=== PATIENT | female | born 1985 | race Caucasian/White ===

== ENCOUNTER → 2017-04-12 | Outpatient (CLI) | payer BC, OTHER ==
[~2017-04-12] MED LIST: FERR325T51 PO; FRRS300 PO; PRENTAB26 PO
== END | disposition home or self-care (01) ==
LOC: C.PAPS 11:13
PROVIDERS: ATTEND Obstetrics & Gynecology
DX: Z01.419 Encounter for gynecological examination (general) (routine) without abnormal findings (principal)

== ENCOUNTER → 2017-07-09 | Outpatient (CLI) | payer BC ==
[2017-07-09 17:54] LABS: URINE APPEARANCE CLEAR (CLEAR); URINE BILIRUBIN NEG (NEG); URINE COLOR YELLOW; URINE EPITHELIAL CELL AUTO 20-30 /lpf (0-5); URINE NITRITE NEG (NEG); URINE PH 5.5 (4.5-7.5); UROBILINOGEN NEG (NEG)
[2017-07-09 17:56] LABS: MANUAL MICROSCOPIC REQUIRED? NO; REVIEW REQ? NO
== END | disposition home or self-care (01) ==
LOC: C.LABSPEC 17:27
PROVIDERS: ATTEND Obstetrics & Gynecology
DX: Z34.91 Encounter for supervision of normal pregnancy, unspecified, first trimester (principal)

== ENCOUNTER → 2017-07-13 | Outpatient (CLI) | payer BC ==
[2017-07-15 15:16] LABS: CHLAMYDIA TRACH RNA*** NOT DETECTED (NOT DETECTED); GC (NEIS GONORRHOEAE)RNA** NOT DETECTED (NOT DETECTED)
== END | disposition home or self-care (01) ==
LOC: C.LABSPEC 15:40
PROVIDERS: ATTEND Obstetrics & Gynecology
DX: Z34.91 Encounter for supervision of normal pregnancy, unspecified, first trimester (principal); Z3A.00 Weeks of gestation of pregnancy not specified

== ENCOUNTER → 2017-07-14 | Outpatient (CLI) | payer BC ==
[2017-07-14 14:40] LABS: BASO % 0.3 %; BASO ABS # 0.02 K/uL (0-0.2); COMPLETE YES; EOS % 0.2 %; HEMATOCRIT 35.3 % (37-47); IG% 0.2 %; LYMPH % 25.3 %; LYMPH ABS # 1.63 K/uL (1.2-3.4); MEAN CELL VOLUME 93.4 fL (80-100); MEAN CORPUSCULAR HEMOGLOBIN 32.3 pg (25-34); MEAN CORPUSCULAR HGB CONC 34.6 g/dl (32-36); MEAN PLATELET VOLUME 11.2 fL (7.4-10.4); MONO % 8.1 %; NEUT % 65.9 %; PLATELET COUNT 199 K/uL (130-400); RED BLOOD COUNT 3.78 M/uL (4.2-5.4); WHITE BLOOD COUNT 6.45 K/uL (4.8-10.8)
== END | disposition home or self-care (01) ==
LOC: C.LAB1850 12:36
PROVIDERS: ATTEND Obstetrics & Gynecology
DX: Z34.91 Encounter for supervision of normal pregnancy, unspecified, first trimester (principal)

== ENCOUNTER → 2017-09-07 | Outpatient (CLI) | payer BC ==
[2017-09-07 15:25] LABS: GTGD 50 Grams
[2017-09-09 16:20] LABS: AFP CONCENTRATION 44.6 NG/ML; AFP MULTIPLE OF MEDIAN 1.37; AFPTS INSULIN DEP DIABETIC? NO; AFPTS MATERNAL WT 150 LBS; ALPHA-FETOPROTEIN RACE OTHER=O; CIGARETTE SMOKER? NOT PROVIDED; HISTORY OF NTD NO; REPEAT SAMPLE? NO
== END | disposition home or self-care (01) ==
LOC: C.LAB1850 13:29
PROVIDERS: ATTEND Obstetrics & Gynecology
DX: Z34.92 Encounter for supervision of normal pregnancy, unspecified, second trimester (principal)

== ENCOUNTER → 2017-11-18 | Outpatient (CLI) | payer BC ==
--- NOTE | 2017-11-18 09:07 | DIAGNOSTIC IMAGING REPORT ---
GALLBLADDER-ABD LIMITED CLINICAL HISTORY: R10.11 Abdominal pain, RUQ pain. Nausea. TECHNIQUE: Ultrasound COMPARISON STUDY: None FINDINGS: Normal gallbladder. Common bile duct 3 mm. Liver and pancreas are uniform throughout. Right kidney is negative for hydronephrosis. IMPRESSION: Negative study. The above report was generated using voice recognition software. It may contain grammatical, syntax or spelling errors. Electronically signed by: Aba Boyle M.D. 11/18/2017 9:06 AM Dictated Date/Time: 11/18/2017 9:05 AM
== END | disposition home or self-care (01) ==
LOC: C.ULTRBC 08:21
PROVIDERS: ATTEND Obstetrics & Gynecology
DX: O26.892 Other specified pregnancy related conditions, second trimester (principal); R10.11 Right upper quadrant pain

== ENCOUNTER → 2017-11-29 | Outpatient (CLI) | payer BC | END | disposition home or self-care (01) | LOC: C.LABSPEC 13:23 | PROVIDERS: ATTEND Obstetrics & Gynecology | DX: Z34.93 Encounter for supervision of normal pregnancy, unspecified, third trimester (principal) ==

== ENCOUNTER → 2017-11-29 | Outpatient (CLI) | payer BC ==
[2017-11-29 12:15] LABS: HEMATOCRIT 32.3 % (37-47); HEMOGLOBIN 11.3 g/dL (12.0-16.0)
== END | disposition home or self-care (01) ==
LOC: C.LAB1850 10:41
PROVIDERS: ATTEND Obstetrics & Gynecology
DX: Z34.93 Encounter for supervision of normal pregnancy, unspecified, third trimester (principal)

== ENCOUNTER → 2017-12-03 | Outpatient (CLI) | payer BC | END | disposition home or self-care (01) | LOC: C.LAB1850 07:52 | PROVIDERS: ATTEND Obstetrics & Gynecology | DX: O28.1 Abnormal biochemical finding on antenatal screening of mother (principal) ==

== ENCOUNTER → 2018-01-25 | Outpatient (CLI) | payer BC | END | disposition home or self-care (01) | LOC: C.LABSPEC 17:35 | PROVIDERS: ATTEND Obstetrics & Gynecology | DX: Z34.93 Encounter for supervision of normal pregnancy, unspecified, third trimester (principal) ==

== ENCOUNTER 2018-02-14 03:56 | Inpatient (IN) | payer BC ==
[~2018-02-14] VITALS: Ht 165.1 cm; Wt 78.6 kg
[~2018-02-14 03:56] MED LIST changes: -FERR325T51 PO; -FRRS300 PO
[2018-02-14] MEDS ORDERED: LACTATED RINGER'S 1000ML 1,000 ML IV SCH (04:02)
[2018-02-14] MEDS ORDERED: LACTATED RINGER'S 1000ML 1,000 ML IV PRN (04:02)
[2018-02-14] MEDS ORDERED: PENICILLIN G POTASSIUM IV 3 MU in DEXTROSE 5% 100ML 100 ML IV PRN (04:15)
[2018-02-14] MEDS ORDERED: PENICILLIN G POTASSIUM IV 6 MU in DEXTROSE 5% 250ML 250 ML IV ONE (04:15)
[2018-02-14 04:48] LABS: HEMATOCRIT 36.8 % (37-47); MEAN CELL VOLUME 96.8 fL (80-100); MEAN CORPUSCULAR HEMOGLOBIN 34.2 pg (25-34); MEAN CORPUSCULAR HGB CONC 35.3 g/dl (32-36); MEAN PLATELET VOLUME 10.9 fL (7.4-10.4); PLATELET COUNT 213 K/uL (130-400); RED CELL DISTRIBUTION WIDTH CV 13.5 % (11.5-14.5); RED CELL DISTRIBUTION WIDTH SD 46.7 fL (36.4-46.3); WHITE BLOOD COUNT 13.51 K/uL (4.8-10.8)
[2018-02-14] MEDS ORDERED: BUPIVACAINE 0.25% 30 ML VIAL ONE (04:48)
[2018-02-14] MEDS ORDERED: EpHEDrine SULFATE INJ 50 MG/ML AMP ONE (04:48)
[2018-02-14] MEDS ORDERED: FENTANYL CITRATE INJ 50 MCG/1 ML 2 ML VIAL ONE (04:49)
[2018-02-14] MEDS ORDERED: FENTANYL 2MCG/ML ROPIV 1.25MG/ML 100ML BAG ONE (04:50)
[2018-02-14] MEDS ORDERED: OXYTOCIN 30 UNITS/500ML NSS IV ONE (04:50)
[2018-02-14] MEDS ORDERED: BENZOCAINE 20% AER SPR 82.5 GM CAN EXT PRN (05:30)
[2018-02-14] MEDS ORDERED: ACETAMINOPHEN 325 MG TAB PO PRN (05:30)
[2018-02-14] MEDS ORDERED: LANOLIN OINT EXT PRN (05:30)
[2018-02-14] MEDS ORDERED: OXYTOCIN 30 UNITS/500ML NSS IV PRN (05:30)
[2018-02-14] MEDS ORDERED: SUPERCREAM 0.870 % 15GM JAR EXT PRN (05:30)
[2018-02-14] MEDS ORDERED: OXYCODONE/ACETAMINOPHEN 5-325 TAB PO PRN (05:30)
[2018-02-14 05:36] VITALS: Ht 165.1 cm; Wt 78.6 kg
[2018-02-14] MEDS: IBUPROFEN 600 MG TAB PO PRN ×2 (05:44→20:58)
--- NOTE | 2018-02-14 06:04 | DELIVERY SUMMARY ---
DATE OF OPERATION: 02/14/2018 The patient is a 32-year-old 2 para 1-0-0-1 white female, who had presented at 38 and 6/7 weeks in active labor. Her contractions started approximately at 0230 hours. She presented in labor and delivery at 5 cm dilated. She rapidly went to 9 cm with bulging membranes. She is GBS positive. The patient had a significant urge to push. Membranes ruptured for clear fluid. She then began pushing stage. She was moving the baby down but the heart rate was staying in the 60s and after she brought the vertex to +3 station, the vacuum was applied. There was 1 pop-off initially and then through 2 pulls the infant was brought to delivery in the direct occiput posterior presentation. Mouth and nasopharynx were suctioned on the perineum. The rest of the delivered easily and was placed on the mother's abdomen for further stimulation. The cord was clamped and cut. The baby was then moved to the warmer. With additional stimulation, there was spontaneous crying and the infant was moving all 4 limbs. The placenta was expressed intact with a 3-vessel cord. A second-degree perineal laceration was repaired with 3-0 chromic in the usual fashion. Estimated blood loss is 300 mL. Lidocaine 1% was used prior to repairing the tear, approximately 30 mL of lidocaine were used. Mother and infant were doing well after delivery. I attest to the content of the Intraoperative Record and any orders documented therein. Any exceptions are noted below. MTDD
--- NOTE | 2018-02-14 06:46 | Discharge Instructions ---
Discharge Instructions Date of Service February 14, 2018. Admission Reason for Admission: Normal Labor Discharge Discharge Diagnosis / Problem: Vaginal Delivery Discharge Goals Goal(s): Routine recovery after delivery Medications Continue Dispensed Medications: supercream, dermaplast, tucks, lansinoh Activity Recommendations Activity Limitations: per Instructions/Follow-up section . Instructions / Follow-Up Instructions / Follow-Up ACTIVITY RECOMMENDATIONS: * Gradual return to full activity over the next 2-3 weeks. * No lifting - nothing heavier than baby over the next 2-3 weeks. * Do not engage in vigorous exercise, sexual activity or sports until cleared by your physician. * Do not drive or operate any motorized equipment until cleared by your physician. * You may shower/bathe daily. MEDICATIONS: For discomfort or pain, you may use Acetaminophen (Tylenol), Ibuprofen (Advil), or Naproxen (Aleve) following the package directions. For constipation you may use Colace following the package directions. BREAST CARE: If you are not breast feeding: * Wear a supportive bra 24 hours a day for one to two weeks. * Avoid stimulating your breasts and nipples as much as possible during the first few weeks after delivery. * When taking a shower, have the warm water hit your back, not breasts. * When your breasts feel full, apply ice packs. Usually three to four times a day helps ease the discomfort. * Take a mild pain medication (Tylenol / Motrin) when you are uncomfortable. If breast feeding: * Use breast milk to lubricate nipples. Lansinoh cream may be used for sore nipples. You do not need to remove cream prior to breast feeding. If using a different brand of cream, check the label for directions regarding removal of cream prior to nursing. * Wear a supportive bra. * If having problems with breasts or breast feeding, call a human performance consultant or your health care provider. EPISIOTOMY CARE: After delivery, if you have an episiotomy (stitches), the following steps will ease discomfort and aid healing. * For the first 24 hours after delivery, place ice packs next to your episiotomy to help reduce swelling. * After the first 24 hour-period, sitz baths, either portable or in the tub, are suggested. A shower with a shower arm sprayed over the episiotomy may be comforting. * Daisy care should be done after each voiding and bowel movement. Squirt warm water from a plastic bottle over the perineum (region of the body between the anus and urinary opening) and pat dry. * Use Dermoplast to ease discomfort. Shake container. [place] directly over the episiotomy. Place a Tucks on a clean sanitary pad next to your episiotomy. SPECIAL CARE INSTRUCTIONS: When you are discharged from the hospital, it is important for you to follow the instructions listed below: * During the first week at home, you should be able to care for yourself and your baby. In addition, the usual light household activities are encouraged. * Limit your activities to the way you feel. Do not try to clean the house or move furniture. Be sensible. * If you actively engage in sports and have done so up until the time of your delivery, you may resume these activities as soon as you feel able. This may take up to one month or even longer. Use good judgment. * Continue to take your vitamins for at least six weeks after the of your baby. * Your diet need not be limited unless you were on a special diet before your delivery. Breast-feeding mothers need around 2500 calories per day and at least 64-80 ounces of fluid per day (8 to 10 glasses). * You should eat foods from the four major food groups. Crash diets or fad diets are to be avoided. Eating lean meats, fresh fruits and vegetables, low-fat dairy products, high fiber foods and a regular exercise program, will help you get back to your pre- weight without putting your health at risk. * Constipation is sometimes a problem after delivery. Take a mild laxative as needed. If breast feeding, Milk of Magnesia is acceptable to use. You may use a suppository or Fleets enema if no episiotomy. * A daily shower or tub bath is suggested. Be sure to thoroughly and gently dry the perineum. * A bloody vaginal discharge will usually continue until around four weeks post . A small amount of bleeding may continue for as long as six weeks. Vaginal discharge changes from the bright red bleeding after delivery to pink then brownish and finally yellowish-pink before becoming white and disappearing. * Bleeding may increase with activity. Your first period may come in 4-8 weeks. If you are breast feeding, your period may be delayed even longer. * Belk (sex) can begin whenever both you and your partner feel comfortable and do not have any form of genital infection. It is recommended that you wait at least six weeks for internal and external healing to occur. If you have questions, please talk to your health care practitioner. A condom should be used to prevent infection and . * Foreplay, gentle intercourse and lubrication is very important the first several times to prevent pain. A water-based lubricant such as K-Y jelly or Astroglide may be used. * If you have RH negative blood and your baby is RH positive, you will receive RHOGAM by injection prior to discharge. The nurse will give you a card to keep with you that has the date and place that you received RHOGAM after delivery. * During your care, you had a Rubella screen done to check for the presence of rubella antibodies in your blood. If your test was negative, you will receive a Rubella vaccine prior to discharge. This vaccine may cause a fever, soreness at the injection site and flu-like symptoms. If these symptoms persist, notify your health care practitioner. is not advised for one month after a Rubella vaccine. * Verbalizes understanding of car seat law as reviewed with patient nursing. * Car Seat hand-out given and reviewed with patient by nursing. * Shaken baby information reviewed with patient by nursing. Call you doctor if: * Heavy bleeding (saturating several pads an hour) or passing clots the size of your fist. * A fever >101 degrees F (38.3 degrees C) on two occasions four hours apart and /or chills. * Unusual pain in the pelvic or vaginal areas. * "Baby Blues" lasting longer than two weeks. If you have any questions or concerns, call your health care practitioner at . FOLLOW UP VISIT: * Please call the office at to schedule a 6 week examination. It is important you keep this appointment. It is important for you to make arrangements for either yearly or twice yearly check-ups thereafter. Current Hospital Diet Patient's current hospital diet: Regular OB Diet Discharge Diet Recommended Diet: Regular Diet Pending Studies Studies pending at discharge: no Medical Emergencies . Who to Call and When: Medical Emergencies: If at any time you feel your situation is an emergency, please call 911 immediately. . Non-Emergent Contact Non-Emergency issues call your: Primary Care Provider . . "Provider Documentation" section prepared by Flores Sanchez. .
[2018-02-14] MEDS: DOCUSATE SODIUM 100 MG CAP PO SCH ×2 (08:18→19:48)
[2018-02-14] MEDS: PRENATAL VITAMIN TAB PO SCH (08:18)
[2018-02-14 08:45] VITALS: BP 107/65; PULSE 96; TEMP 37
[2018-02-14 13:00] VITALS: BP 99/64; PULSE 88; TEMP 36.7
[2018-02-14 15:25] VITALS: BP 100/64; PULSE 85; TEMP 36.9
[2018-02-14 20:45] VITALS: BP 101/67; PULSE 88; TEMP 36.7
[2018-02-14 23:25] VITALS: BP 96/60; PULSE 89; TEMP 36.7; O2SAT 97
[2018-02-15 03:40] VITALS: BP 96/62; PULSE 80; TEMP 36.8; O2SAT 99
--- NOTE | 2018-02-15 06:25 | Progress Note ---
Subjective February 15, 2018. Subjective conversation w/ patient Ambulation: ambulating normally Voiding: no voiding problems Diet Tolerance: Regular Diet Lochia: Moderate Feeding Type: Breast Feeding Pain: No pain reported, previously had cramping, mostly with Review of Systems Constitutional: No fever, No chills Respiratory: No shortness of breath Cardiac: No chest pain Abdomen: No nausea, No vomiting Objective Vital Signs Date Time Temp Pulse Resp B/P (MAP) Pulse Ox O2 Delivery O2 Flow Rate FiO2 02/15/18 03:40 36.8 80 16 96/62 (73) 99 Room Air 02/14/18 23:25 Room Air 02/14/18 23:25 36.7 89 16 96/60 (72) 97 Room Air 02/14/18 20:45 36.7 88 18 101/67 (78) Room Air 02/14/18 15:25 36.9 85 18 100/64 (76) Room Air 02/14/18 15:25 Room Air 02/14/18 13:00 36.7 88 20 99/64 (76) Room Air 02/14/18 13:00 Room Air 02/14/18 08:45 37.0 96 20 107/65 (79) Room Air 02/14/18 08:45 Room Air Physical Exam General Appearance: WELL-APPEARING, WD/WN, NO APPARENT DISTRESS Respiratory/Chest: lungs clear, normal breath sounds Cardiovascular: regular rate, rhythm Abdomen: soft Fundus: Firm, Non-Tender, Relation to Umbilicus (at u) Extremities: no calf tenderness, + pedal edema Laboratory Results Last 24 Hours Test 02/15/18 04:44 Assessment and Plan Post- Day#: 1 Continue Routine Care: 32F s/p NVD day 1 - A+, Rubella Immune, GBS +ve - pt doing well clinically - Vital signs reviewed and WNL - continue routine care - encourage ambulation. encourage breast feeding - anticipate d/c tomorrow Written by: Flores Sanchez, PGY-1 Resident Physician Supervision Note: I was present with Dr. Sanchez during the history and exam. I discussed the case with the resident and agree with the findings and plan as documented in the note. Any exceptions or clarifications are listed here: doing well. routine care. Documented By: Jessica M. Narvaez Resident Tracking Resident Involvement: Resident Care Provided Care Provided: OB Delivery
[2018-02-15 06:48] LABS: HEMATOCRIT 30.5 % (37-47); HEMOGLOBIN 10.5 g/dL (12.0-16.0)
[2018-02-15 07:41] VITALS: BP 96/60; PULSE 79; TEMP 36.6
[2018-02-15] MEDS: PRENATAL VITAMIN TAB PO SCH (08:06)
[2018-02-15] MEDS: DOCUSATE SODIUM 100 MG CAP PO SCH ×2 (08:07→20:24)
[2018-02-15 12:20] VITALS: BP 102/67; PULSE 90; TEMP 36.7; O2SAT 98
[2018-02-15] MEDS: IBUPROFEN 600 MG TAB PO PRN (14:37)
[2018-02-15 17:35] VITALS: BP 103/69; PULSE 91; TEMP 36.6
[2018-02-15] MEDS ORDERED: BISACODYL 5 MG TABEC PO SCH (20:00)
[2018-02-15 23:45] VITALS: BP 105/68; PULSE 80; TEMP 36.9; O2SAT 99
--- NOTE | 2018-02-16 06:51 | Progress Note ---
Subjective February 16, 2018. Subjective conversation w/ patient Ambulation: ambulating normally Voiding: no voiding problems Diet Tolerance: Regular Diet Lochia: Small Feeding Type: Breast Feeding Pain: No pain reported at this time Review of Systems Constitutional: No fever, No chills Respiratory: No shortness of breath Cardiac: No chest pain Abdomen: No nausea, No vomiting Objective Vital Signs Date Time Temp Pulse Resp B/P (MAP) Pulse Ox O2 Delivery O2 Flow Rate FiO2 02/15/18 23:45 Room Air 02/15/18 23:45 36.9 80 16 105/68 (80) 99 Room Air 02/15/18 17:35 Room Air 02/15/18 17:35 36.6 91 20 103/69 (80) Room Air 02/15/18 12:20 36.7 90 18 102/67 (79) 98 Room Air 02/15/18 07:41 36.6 79 18 96/60 (72) Room Air 02/15/18 07:40 Room Air Physical Exam General Appearance: WELL-APPEARING, WD/WN, NO APPARENT DISTRESS Abdomen: soft Fundus: Firm, Non-Tender, Relation to Umbilicus (1 below) Extremities: no calf tenderness, + pedal edema Assessment and Plan Post- Day#: 2 Continue Routine Care: 32F s/p NVD day 2 - A+, Rubella Immune, GBS +ve - pt doing well clinically - Vital signs reviewed and WNL - Hgb reviewed - 13 -> 10.5 - continue routine care - encourage ambulation. encourage breast feeding - pt ready for d/c today and will be counselled on d/c instructions Resident Physician Supervision Note: I was present with Dr. Sanchez during the history and exam. I discussed the case with the resident and agree with the findings and plan as documented in the note. Any exceptions or clarifications are listed here: PPD#2 doing well. DC home. Documented By: Donna Hensley Resident Tracking Resident Involvement: Resident Care Provided Care Provided: OB Delivery
[2018-02-16 07:30] VITALS: BP 111/71; PULSE 76; TEMP 36.4; O2SAT 98
[2018-02-16] MEDS: DOCUSATE SODIUM 100 MG CAP PO SCH (08:59)
[2018-02-16] MEDS: IBUPROFEN 600 MG TAB PO PRN (08:59)
[2018-02-16] MEDS: PRENATAL VITAMIN TAB PO SCH (08:59)
[2018-02-16 13:40] VITALS: BP_DIAS 71; PULSE 76; TEMP 36.4
== END 2018-02-16 13:40 | disposition home or self-care (01) | DRG 775 ==
LOC: C.LD 03:56 → C.OPB 03:56 → C.LD 04:04 → C.OPB 04:12 → C.OBG 08:40 → EDSTATUS 02-22 03:53
PROVIDERS: ADMIT Obstetrics & Gynecology; ATTEND Obstetrics & Gynecology
PROC: 10D07Z6 Extraction of Products of Conception, Vacuum, Via Natural or Artificial Opening (ICD-10-PCS; principal; 2018-02-14)
PROC: 0KQM0ZZ Repair Perineum Muscle, Open Approach (ICD-10-PCS; principal; 2018-02-14)
DX: O70.1 Second degree perineal laceration during delivery (principal); O99.824 Streptococcus B carrier state complicating childbirth; Z3A.38 38 weeks gestation of pregnancy; Z37.0 Single live birth